=== PATIENT | male | born 1960 | race Caucasian/White ===

== ENCOUNTER 2016-09-04 18:12 | Emergency (ER) | payer OTHER ==
[~2016-09-04] VITALS: Ht 177.8 cm; Wt 77.3 kg
[~2016-09-04 18:12] MED LIST: CITA40TA13 PO; HYDR-4003 PO; HYDR25CA PO; KLO1T PO; PROP10TA8 PO
[2016-09-04 18:17] VITALS: BP 144/89; PULSE 79; RESP 18; O2SAT 100
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
[2016-09-04] MEDS ORDERED: LORazepam 2 mg Tablet PO ONE (21:40)
[2016-09-04] MEDS ORDERED: Ziprasidone 20 mg/mL Inj IM ONE (22:20)
[2016-09-05] VITALS (8 sets, daily range): BP systolic 100–135; BP diastolic 63–85; PULSE 74–118; RESP 16–20; O2SAT 93–96
[2016-09-05 00:33] LABS: BASOPHILS % (AUTO) 0.3 % (0-3); MONOCYTES % (AUTO) 6.1 % (4-12); Mean Corpuscular Hemoglobin 32.4 pg (27.0-35.0); NEUTROPHILS % (AUTO) 48.8 % (40-74); Platelet Count 250 bil/L (150-400)
[2016-10-11] MEDS ORDERED: TERB250T4 PO (12:27)
[2016-10-11] MEDS ORDERED: CALC500T53 PO (12:27)
[2016-10-11] MEDS ORDERED: HYDR-656 PO (12:27)
[2016-10-11] MEDS ORDERED: HYDR-4003 PO (12:27)
[2016-10-11] MEDS ORDERED: KLO1T PO (12:27)
[2016-10-11] MEDS ORDERED: CITA40TA13 PO (12:27)
[2016-10-11] MEDS ORDERED: LISI-571 PO (12:27)
[2016-10-11] MEDS ORDERED: CHOL200047 PO (12:27)
== END 2016-09-05 10:19 ==
LOC: SED 18:12
DX: F10.120 Alcohol abuse with intoxication, uncomplicated (principal); R45.1 Restlessness and agitation; I10 Essential (primary) hypertension; F17.290 Nicotine dependence, other tobacco product, uncomplicated
CPT/HCPCS: 36415; 80053; 82075; 82550; 84443; 85025; 96372; 99284; G0480; J3486

== ENCOUNTER 2016-09-05 12:47 | Emergency (ER) | payer OTHER ==
[~2016-09-05] VITALS: Ht 177.8 cm; Wt 79.0 kg
[2016-09-05 12:56] VITALS: BP 143/96; PULSE 82; RESP 16; O2SAT 98
--- NOTE | 2016-09-05 13:17 | ED.REPORT ---
HPI-Overdose/Alcohol Toxicity Date of Service Sep 05, 2016 ED Provider: Olaf Altman MD Patient is a 56 year old male with a history of alcohol abuse who presents to the ED requesting medical clearance to the crisis center. He denies vomiting, melena, fever, cough, suicidal or homicidal ideations, or any other symptoms. He has been to the crisis center before about 4 years ago. His last drink was this afternoon. His SINCERE upon arrival is .237%. Patient was seen in the department last night and discharged just hours prior. Nursing Notes Stated Complaint: INTOXICATION Chief Complaint: Substance Abuse Nursing Notes Reviewed: Yes Allergies: Coded Allergies: No Known Allergies (Verified , 09/04/16) Scheduled Citalopram (Citalopram) 40 Mg Tablet 40 MG PO DAILY Scheduled PRN Clonazepam (Clonazepam) 1 Mg Tablet 1 MG PO TID PRN PRN For Anxiety Hydrocodone-Acetaminophen 5-325 mg (Hydrocodone-Acetaminophen 5-325 mg) 1 Each Tablet 1 TABLET PO Q6H PRN PRN For Pain Hydroxyzine Pamoate (Vistaril) 25 Mg Capsule 25 MG PO QID PRN PRN For Spasm Propranolol HCl (Propranolol HCl) 10 Mg Tablet 10 MG PO TID PRN PRN PRN General Time Seen by Provider: 13:15 Chief Complaint Intoxicated, alcohol Hx Obtained From: Patient Arrived By: Walk-in Recent Healthcare: Recent doctor visit Similar Sx Previous: Yes Risk-Overdose/Alcohol Tox )( Suicide Risk Stratification : Alcohol use: Previous attempt: Prior psych admissionNo: Substance abuse RF Statements: Risk factors reviewed Past Medical History Past Medical History Notes: Multiple ED visits for ETOH 03/07 and 03/19 Admit x2 to the care center 02/2015 for depression, SI complicated by ETOH Multiple Outside Hospitalizations (psych) Past Medical History anxiety/depression h/o ETOH abuse (no significant withdrawal noted in two [facility] admits 02/2015) Reports: Hypertension, Denies: Diabetes mellitus Reports: Depression Past Surgical History Facial surgery Left long finger open reduction of the proximal interphalangeal joint, with pinning of the proximal interphalangeal joint. Left long finger repair of the overlying central slip extensor tendon. Left middle finger surgery removing pin Family History Noncontributory Smoking History Current Every Day Smoker, Heavy Tobacco Smoker Social History Alcohol Use: >5 per day Drug Use: Denies drug use Other Social History: Good social support Ambulatory Status Independent Review of Systems Constitutional: Denies: Fever Respiratory: Denies: Non-productive cough GI: Denies: Melena, Vomiting Neurologic: Reports: Shaking (Tremulous) Psychiatric: Denies: Homicidal ideation, Suicidal ideation Complete sys rev & neg: except as marked. Physical Exam Initial Vital Signs Vital Signs (First) Date Time Temp Pulse Resp B/P Pulse Ox O2 Delivery O2 Flow Rate FiO2 09/05/16 12:56 36.0 82 16 143/96 98 Room Air Initial VS: Reviewed Head / Eyes: Atraumatic, Normocephalic Neck: Full range of motion General/Constitutional: Awake, Alert, Well developed Appearance / Presentation: Positive: Intoxicated Tremulous Respiratory / Chest: Breath sounds NL, No respiratory distress Cardiovascular: Peripheral circulation NL Abdomen: Soft, Non-tender Neurologic: Oriented X3, Speech NL Psychiatric: Affect NL, Mood NL, Not suicidal, Not homicidal Skin: Color NL Skin findings consistent with hard alcohol use. Re-Eval/Medical Decision Re-Evaluation/Progress : Time of Eval: 13:30 )( Re-Eval Psychiatric: No danger to self, No danger to others, No suicidal ideation, No homicidal ideation Re-Evaluation/Progress Note: Discussed plan for discharge with consistent followup with [facility]. Patient understands and agrees with plan. All questions addressed at this time. Counseled Regarding: Diagnosis, Need for follow-up, When/why to return to ED Discharge & Departure Impression: Primary Impression: Acute alcohol intoxication Complication of substance-induced condition: uncomplicated Qualified Code: F10.120 - Alcohol abuse with intoxication, uncomplicated Disposition: Home Patient Instructions: Abuse of Alcohol (ED) Additional Instructions: Call crisis respite at [phone] every 12 hours to check and see when they have a bed available. If your alcohol withdrawal is much worse or if you are experiencing severe symptoms such as fainting, vomiting blood or stooling blood or tarry material, return to the emergency department. Referrals: Ananya Galicia MD (PCP) Scribe Attestation Portions of this note were transcribed by Mayelin Holder. IDr. Almtan personally performed the history, physical exam and medical decision-making; I reviewed and confirmed the accuracy of the information in the transcribed note. Signed by: Mayelin Holder 09/05/2016, 1340 copies to: Ananya Galicia MD, Kirk H MD Sep 05, 2016 13:17 MAYELIN HOLDER Sep 05, 2016 13:31
[2016-09-05 14:01] VITALS: BP 143/96; PULSE 82; RESP 16; O2SAT 98
[2016-10-11] MEDS ORDERED: CHOL200047 PO (12:27)
[2016-10-11] MEDS ORDERED: CALC500T53 PO (12:27)
[2016-10-11] MEDS ORDERED: LISI-571 PO (12:27)
[2016-10-11] MEDS ORDERED: KLO1T PO (12:27)
[2016-10-11] MEDS ORDERED: CITA40TA13 PO (12:27)
[2016-10-11] MEDS ORDERED: HYDR-4003 PO (12:27)
[2016-10-11] MEDS ORDERED: TERB250T4 PO (12:27)
[2016-10-11] MEDS ORDERED: HYDR-656 PO (12:27)
== END 2016-09-05 13:50 | disposition home or self-care (01) ==
LOC: SED 12:47
DX: F10.120 Alcohol abuse with intoxication, uncomplicated (principal); I10 Essential (primary) hypertension; F17.200 Nicotine dependence, unspecified, uncomplicated

== ENCOUNTER 2016-10-12 06:05 | Day surgery (SDC) | payer OTHER ==
[~2016-10-12] VITALS: Ht 177.8 cm; Wt 78.2 kg
[2016-10-12] VITALS (8 sets, daily range): BP systolic 115–136; BP diastolic 56–89; PULSE 69–88; RESP 13–18; O2SAT 96–100
[~2016-10-12 06:05] MED LIST changes: +CALC500T53 PO; +CHOL200047 PO; +CeFAZolin Inj 2 GM in IV Premix 1 EACH IV ONE; +HYDR-656 PO; -HYDR25CA PO; +LISI-571 PO; +Lactated Ringer's 1,000 ML IV ONE; -PROP10TA8 PO; +TERB250T4 PO
[2016-10-12] MEDS ORDERED: Propofol 10,000 mCg/mL 20 mL Inj ONE (06:06)
[2016-10-12] MEDS ORDERED: Glycopyrrolate 0.2 MG/ML 1mL Inj ONE (06:06)
[2016-10-12] MEDS ORDERED: fentaNYL-PF 50 mCg/mL 2 mL Inj ONE (06:06)
[2016-10-12] MEDS ORDERED: Ondansetron 2 mg/mL 2 mL Inj ONE (06:06)
[2016-10-12] MEDS ORDERED: Lactated Ringer's 500 ML IV PRN (07:16)
[2016-10-12] MEDS ORDERED: Lactated Ringer's 1,000 ML IV SCH (07:16)
--- NOTE | 2016-10-12 07:16 | PCM.HPANE ---
Patient Data Surgeon Admitting Provider: Attending Provider:Shasta Haynes DPM Primary Care Physician:Ananya Galicia MD Other Provider:Leila Holguin Anesthesia Reason for Visit Right Hallux Rigidus Ht/WT & BMI Height (Feet): 5 Height (Inches): 10 Weight (Kilograms): 78.2 Body Mass Index 24.00 Allergies Coded Allergies: No Known Allergies (Verified , 09/04/16) Past Anesthesia History Anesthesia History: Denies:: Abnormal Airway, Anesthesia Reactions, Difficult Intubation, Malignant Hyperthermia Diabetes History Hx Diabetes?: No MRSA MRSA: No Medications Hypertension Medication: Yes Home Meds Incl Beta Franklin: No Reported Medications Cholecalciferol (Vitamin D3) (Vitamin D3)2,000 Unit Capsule2,000 Unit PO DAILY 10/11/16 Terbinafine (Lamisil)250 Mg [id number] Mg PO DAILY 10/11/16 Hydrocodone-Acetaminophen 5-325 mg 1 Each Tablet1 Tablet PO Q4H PRN For Pain Ref 0 10/11/16 Lisinopril 5 Mg Tablet5 Mg PO DAILY #30 TABLET Ref 0 10/11/16 Clonazepam 1 Mg Tablet1 Mg PO TID PRN For Anxiety Ref 0 10/11/16 Calcium Carbonate 200 Mg Tab.tats041 Mg PO DAILY 10/11/16 Citalopram 40 Mg Chhxkl15 Mg PO DAILY 30 Days Ref 0 10/11/16 Discontinued Reported Medications hydrOXYzine Hcl (HydrOXYzine Hcl)25 Mg [id number] Mg PO TID PRN For Anxiety Ref 0 10/11/16 Propranolol HCl 10 Mg Rulzbt56 Mg PO TID PRN PRN 90 Days Ref 0 12/19/15 Hydrocodone-Acetaminophen 5-325 mg 1 Each Tablet1 Tablet PO Q6H PRN For Pain Ref 0 12/19/15 Hydroxyzine Pamoate (Vistaril)25 Mg Lunccar58 Mg PO QID PRN For Spasm Ref 0 12/19/15 Clonazepam 1 Mg Tablet1 Mg PO TID PRN For Anxiety Ref 0 12/19/15 Discontinued Scripts Citalopram 40 Mg Kzcuwj53 Mg PO DAILY #5 TABLET Ref 0 Prov:Mak Leal MD 11/23/15 History History of ENT Problems?: No HEENT History: Positive for:: Sinus Problem (Seasonal runny nose) Denies:: Abnormal Airway Cataracts Difficult Intubation Dysphagia Hx of Heart Problems?: Yes Cardiovascular History: Positive for:: Irregular Heartbeat (palpitations, r/t anxiety?) Denies:: Cardiac Surgery Chest Pain Congestive Heart Failure Edema Heart Murmur Hypertension Pacemaker Thrombophlebitis Hx of Respiratory Problem?: No Respiratory History: Positive for:: Cough Dyspnea Pneumonia Denies:: Asthma COPD Chest Surgery Emphysema Hemoptysis Tuberculosis Use of C-PAP Machine Hx Neurologic Problems?: Yes Neurological History: Positive for:: Dizziness Headaches Seizures (with withdrawals.) Denies:: Alzheimer's Disease CVA Dementia Parkinson's Disease Hx of GI Problems?: No Gastrointestinal History: Positive for:: Heartburn Denies:: Diverticulitis Gastroesphageal Reflux Gastrointestinal Bleeding Hepatitis Hiatal Hernia Rectal Bleeding Hx of Problems?: No Genitourinary History: Denies:: HX of Hemodialysis Kidney Stones Urinary Tract Infection HX of Peritoneal Dialysis: No Male Hx: Denies:: Prostate Problems Scrotal Mass Testicular Surgery Skin History: Denies:: History Skin Disorders? Pressure Ulcers Hx Musculoskeletal Problems?: Yes Musculoskeletal History: Positive for:: Back Injury (15 years ago injured back , still has pain off/on) Musculoskeletal Trauma (right bunion current admission problem) Denies:: Joint Replacement Hx of Psycho/Social Problems?: Yes Psycho Social History: Positive for:: Anxiety Hx Depression Denies:: Bipolar Disorder Suicide Attempt Hx Surgeries?: Yes (L side facial reconstruction, left long finger pinning) Hx Any Other Health Problems?: Yes Other History: Positive for:: Hospitalization Denies:: Cancer Endocrine Disease Thyroid Disease History Blood Transfusions: Denies:: Blood Transfuse Reaction Blood Transfusions Hx Diabetes: No Hx Alcohol Use: Yes (multiple ED admissions for alcohol abuse/ last september 2016) Hx Substance Use: No (DENIES) Smoking Status: Current Every Day Smoker Heavy Tobacco Smoker Have You Smoked inLast 12 mo: Yes Stop/Bang P-Blood Pressure: treated: Yes B- Body Mass Index > 35 kg/m2: No A- Age over 50: Yes N- Neck Large Circumference: No G- Gender Male: Yes MIGUEL Risk Assessment: High Risk, =/>3 Yes Risk Assessment Category Category 1A: Patient has history of documented sleep apnea, and HAS NOT received any narcotic, sedative or anesthesia administration during this stay. Category 1B: Patient has history of documented sleep apnea, and HAS received any narcotic , sedative or anesthesia administration during this stay Category 2: Patient has SUSPECTED Obstructive Sleep Apnea, and HAS received any narcotic , sedative or anesthesia administration during this stay. Category 3: Patient has SUSPECTED Obstructive Sleep Apnea and HAS NOT received narcotic, sedative or anesthesia administration during this stay. Category 4: Outpatient in Procedural Areas with known sleep apnea or who screen positive for High Risk via the STOP/BANG questionnaire. Exam Exam Vital Signs Vital Signs Date Time Temp Pulse Resp B/P Pulse Ox O2 Delivery O2 Flow Rate FiO2 10/12/16 06:39 36.3 72 16 121/74 96 Room Air General Appearance: Alert, Oriented X3, Cooperative, No Acute Distress HEENT/AIRWAY: MP 2 Lungs: Clear to Auscultation, Normal Air Movement Heart: Exam Unremarkable, Regular Rate/Rhythm, No Murmurs/Rubs/Gallops Meds/Labs/Diagnostics Admission Meds Current Medications Lactated Ringer's (Lr) 1,000 ml @ 10 mls/hr Q24H ONCE IV Last administered on 10/12/16t 06:39; Start 10/12/16 at 06:00; Stop 10/13/16 at 05:59 Plan Impression Patient chart reviewed, patient interviewed and anesthestic plan with risks, benefits, and alternatives discussed, and informed consent obtained. NPO Status: 2300 10/11/16 ASA Physical Status: ASA3 Severe Disease Anesthetic Plan: GA Bene/Risks/Altern/Consents: Yes HP Complete Prior to Induction: Yes Jefferson Manzo MD Oct 12, 2016 07:02
[2016-10-12] MEDS ORDERED: HYDROmorphone 1 mg/mL Inj IVPUSH PRN (07:20)
[2016-10-12] MEDS ORDERED: Ondansetron 2 mg/mL 2 mL Inj IVPUSH PRN (07:20)
[2016-10-12] MEDS ORDERED: Labetalol 5 mg/mL 4 mL Inj IV PRN (07:20)
[2016-10-12] MEDS ORDERED: MetoCLOpramide 5 mg/mL 2 mL Inj IVPUSH PRN (07:20)
[2016-10-12] MEDS ORDERED: fentaNYL-PF 50 mCg/mL 2 mL Inj IVPUSH PRN (07:20)
[2016-10-12] MEDS ORDERED: Phenylephrine 10,000 mCg/mL Inj IVPUSH PRN (07:20)
[2016-10-12] MEDS ORDERED: EPHEDrine Sulfate 50 mg/mL Inj IVPUSH PRN (07:20)
[2016-10-12] MEDS ORDERED: Atropine 0.4 mg/mL Inj IVPUSH PRN (07:20)
[2016-10-12] MEDS ORDERED: Lidocaine 1% 50 mL Inj INJ ONE (07:31)
[2016-10-12] MEDS ORDERED: Lidocaine 1%/Epi 1:100,000 30 mL MDV INFILTRATE ONE (07:31)
[2016-10-12] MEDS ORDERED: oxyCODONE-Acetamin 5-325 mg Tablet PO PRN (08:15)
[2016-10-12] MEDS ORDERED: OXYC1TAB24 PO (08:16)
--- NOTE | 2016-10-12 08:22 | PCM.PODPO ---
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 Findings 60% loss of articular cartilage. Large exostoses, joint mice. Details of Procedure The patient was identified in the preoperative holding area and brought back to the operating room. He was placed on the operating table in supine position. General anesthesia was initiated and the time out protocol completed. The patients name and site of surgery were confirmed. The right foot was prepped and draped in the usual aseptic manner. Local anesthetic was administered, containing epinephrine in the incisional area only for hemostasis. No tourniquet was necessary. Bleeding vessels were cauterized as needed and neurovascular structures retracted where possible throughout the procedure. An incision was made on the dorsomedial aspect of the first metatarsophalangeal joint. It was deepened bluntly to expose the joint capsule of the first metatarsophalangeal joint. A linear incision was made through the capsule to reflected from the metatarsal head dorsally, laterally, and medially. Excessive exostoses were resected with a bone saw. Joint mice were removed with the rongeur. The proximal phalangeal base was remodeled with a rongeur. The subchondral bone, where cartilage was completely eroded, was fenestrated with a 0.045 inch K wire. Irrigation was done with normal saline. The joint surfaces and periarticular bone were rasped smooth. Range of motion was found to be 90 in dorsiflexion and 30 of plantarflexion. After capsular closure, the range of motion remained smooth. Irrigation was performed with normal saline. The capsular repair, tubularization of the extensor hallucis longus tendon, and deep soft tissue was reapproximated with Vicryl suture, the skin closed with Prolene. Dressing consisted of sterile silk, saline moistened gauze, Kerlix and lightly compressed Coban. The patient was weaned off of anesthesia and transported to Day Surgery with vital signs stable and vascular status to the operative foot intact. Grafts, Implants: None Complications There were no periprocedural complications identified. Condition Stable Anesthetic Administered: GA Drains: None Catheters: None Output, Estimated Blood Loss: 5 (ml) Blood Admin during surgery: No Surgical Cast or Splint: Post-op Boot Surgical Specimen Removed: No Specimen sent to Pathology: No Post Operative Plan Weightbearing as tolerated in a postoperative shoe. Discharge home care friend. Postoperative by mouth pain medication for after 1 week. Follow-up is scheduled in my office in 1 week. Shasta Haynes DPM Oct 12, 2016 08:22
--- NOTE | 2016-10-12 08:27 | PCM.ANEP1 ---
Post Anesthesia Phase 1 PACU Phase 1 Assessment Date of Service: Oct 12, 2016 Vital Signs Vital Signs Date Time Temp Pulse Resp B/P Pulse Ox O2 Delivery O2 Flow Rate FiO2 10/12/16 08:15 36.0 76 13 123/58 100 Simple Mask 8 10/12/16 06:39 36.3 72 16 121/74 96 Room Air Anesthetic Administered: GA Level of Alertness: Sleepy, easy to arouse DELGADO's with Equal Strength: Yes Pain: No Nausea or Vomiting: No Oxygen Delivery: Simple Mask Lungs: Clear to Auscultation, Normal Air Movement Jefferson Manzo MD Oct 12, 2016 08:27
--- NOTE | 2016-10-12 08:30 | PCM.ANEP2 ---
Post Anesthesia Evaluation ASA/CMS Post Anesthesia VS in Patient's Normal Range?: Yes Resp Stable; Airway Patent?: Yes CV Function & Hydration Stable: Yes Mental Status Recovered?: Yes Pain control Satisfactory?: Yes N/V Control Satisfactory?: Yes Jefferson Manzo MD Oct 12, 2016 08:30
== END 2016-10-12 23:59 | disposition home or self-care (01) ==
LOC: SAS 06:05
PROVIDERS: ATTEND Podiatrist
DX: M20.21 Hallux rigidus, right foot (principal); M19.071 Primary osteoarthritis, right ankle and foot; M24.074 Loose body in right toe joint(s); L84 Corns and callosities; I10 Essential (primary) hypertension; F41.9 Anxiety disorder, unspecified; F32.9 Major depressive disorder, single episode, unspecified; F10.21 Alcohol dependence, in remission; F17.210 Nicotine dependence, cigarettes, uncomplicated